=== PATIENT | female | born 1995 | race African-American/Black ===

== ENCOUNTER 2017-07-17 12:32 | Emergency (ER) | payer OTHER ==
[2017-07-17] MEDS ORDERED: Ibuprofen 200 MG TAB ONE (13:20)
--- NOTE | 2017-07-17 13:51 | RAD ---
LEFT MIDDLE FINGER 2 VIEWS: HISTORY: Finger injury. FINDINGS: Joint spaces are preserved. No acute fracture or dislocation. IMPRESSION: No acute osseous abnormalities are demonstrated. POS: [facility]
== END 2017-07-17 13:30 | disposition home or self-care (01) ==
LOC: NAV ERS 12:32
DX: S63.613A Unspecified sprain of left middle finger, initial encounter (principal); F41.9 Anxiety disorder, unspecified; F32.9 Major depressive disorder, single episode, unspecified; F17.210 Nicotine dependence, cigarettes, uncomplicated; Z79.899 Other long term (current) drug therapy; W21.05XA Struck by basketball, initial encounter; Y93.67 Activity, basketball
CPT/HCPCS: Q4049

== ENCOUNTER 2017-08-18 16:16 | Emergency (ER) | payer OTHER ==
[2017-08-18] MEDS ORDERED: Nitrazine Tape 1 ROLL ONE (16:30)
[2017-08-18] MEDS ORDERED: Sodium Chloride 0.9% 2,000 ML ONE (17:06)
== END 2017-08-18 17:19 | disposition home or self-care (01) ==
LOC: NAV ERS 16:16
DX: T54.91XA Toxic effect of unspecified corrosive substance, accidental (unintentional), initial encounter (principal); D50.0 Iron deficiency anemia secondary to blood loss (chronic); F41.9 Anxiety disorder, unspecified; F32.9 Major depressive disorder, single episode, unspecified; F17.200 Nicotine dependence, unspecified, uncomplicated
CPT/HCPCS: 99283; J7050

== ENCOUNTER 2017-11-30 07:31 | Emergency (ER) | payer OTHER, SELFPAY ==
[2017-11-30 12:57] LABS: HIV (1/2) Antibody/Antigen Non-Reactive (NonReactive); HIV 1/2 INDEX 0.18 S/CO (<1.00)
[2017-11-30 22:36] LABS: Chlamydia by PCR Not Detected (NotDetected); GC by PCR Not Detected (NotDetected)
== END 2017-11-30 08:40 | disposition home or self-care (01) ==
LOC: NAV ERS 07:31
DX: Z20.2 Contact with and (suspected) exposure to infections with a predominantly sexual mode of transmission (principal); E28.2 Polycystic ovarian syndrome; D50.9 Iron deficiency anemia, unspecified; F17.210 Nicotine dependence, cigarettes, uncomplicated; F32.9 Major depressive disorder, single episode, unspecified; F41.9 Anxiety disorder, unspecified; Z79.899 Other long term (current) drug therapy
CPT/HCPCS: 87389; 87491; 87591; 99283

== ENCOUNTER 2017-12-22 11:09 | Emergency (ER) | payer OTHER ==
[2017-12-22 12:06] LABS: PTT 35.9 SEC (22.9-36.1); Prothrombin Time 13.7 SEC (12.0-14.7)
[2017-12-22 12:13] LABS: Anion Gap 13 mmol/L (10-20); BUN (Urea Nitrogen) 11 mg/dL (7.0-18.7); CK (CPK) 148 U/L (29-168); Calc. Creatinine Clearance 0 mL/min (70-130); Calcium 9.9 mg/dL (7.8-10.44); Carbon Dioxide 24 mmol/L (22-29); Chloride 108 mmol/L (98-107); Estimated GFR-MDRD Greater than 90; Glucose 92 mg/dL (70-105); Potassium 4.2 mmol/L (3.5-5.1); Sodium 141 mmol/L (136-145)
[2017-12-22 12:14] LABS: BHCG - Serum Negative (NEGATIVE); Pregs Control Bar Appear? YES (CONTROL BAR)
[2017-12-22 12:20] LABS: #Basophils 0.1 thou/uL (0.0-0.2); #Eosinphils 0.1 thou/uL (0.0-0.7); #Lymphocytes 2.5 thou/uL (1.20-3.40); #Monocytes 0.3 thou/uL (0.11-0.59); #Neutrophils 1.9 thou/uL (1.40-6.50); %Basophils 1.6 % (0.0-1.0); %Eosinophils 1.6 % (0.0-10.0); %Lymphocytes 51.3 % (21.0-51.0); %Monocytes 6.9 % (0.0-10.0); %Neutrophils 38.7 % (42.0-75.0); Hemoglobin 11.8 g/dL (12.0-16.0); MDiff Complete? YES; Mean Corpuscular HGB CONC 29.1 g/dL (32.0-36.0); Mean Corpuscular Hemoglobin 22.4 pg (27.0-31.0); Mean Corpuscular Volume 76.8 fL (78.0-98.0); Mean Platelet Volume 7.6 fL (7.4-10.4); Platelet Count 266 thou/uL (130-400); Red Blood Cell (RBC) Count 5.27 mill/uL (4.20-5.40); White Blood Cell (WBC) Count 4.9 thou/uL (4.8-10.8)
[2017-12-22 12:21] LABS: Anisocytosis SLIGHT = 6-15 cells (100X) (0-5/hpf); Microcytosis SLIGHT = 6-15 cells (100X) (0-5/hpf)
[2017-12-22] MEDS ORDERED: Ketorolac Tromethamine 30 MG/ML VIAL ONE (12:21)
[2017-12-22 12:34] LABS: D-Dimer Test Less than 0.27 *mcg/mL (0.27-0.43)
--- NOTE | 2017-12-22 13:55 | RAD ---
RIGHT HIP TWO VIEWS: 12/22/2017 HISTORY: Right hip pain with pain radiating down into the right knee. FINDINGS: There is no evidence of a fracture, dislocation, or other osseous abnormality involving the right hip . IMPRESSION: No acute osseous abnormality. POS: [facility]
--- NOTE | 2017-12-22 13:57 | RAD ---
RIGHT KNEE FOUR VIEWS: HISTORY: Pain. COMPARISON: None. FINDINGS: No significant joint effusion. No acute fracture or malalignment. Very small medial and lateral com partment osteophytes. IMPRESSION: No acute abnormality. POS: [facility]
== END 2017-12-22 13:42 | disposition home or self-care (01) ==
LOC: NAV ERS 11:09
DX: S86.111A Strain of other muscle(s) and tendon(s) of posterior muscle group at lower leg level, right leg, initial encounter (principal); M25.551 Pain in right hip; D50.9 Iron deficiency anemia, unspecified; Z87.891 Personal history of nicotine dependence; F32.9 Major depressive disorder, single episode, unspecified; X50.9XXA Other and unspecified overexertion or strenuous movements or postures, initial encounter
CPT/HCPCS: 80048; 82550; 84703; 85025; 85379; 85610; 85730; 96374; J1885

== ENCOUNTER 2018-01-30 08:27 | Emergency (ER) | payer OTHER, SELFPAY ==
[2018-01-30] MEDS ORDERED: Iopamidol 370 76% 100 ML VIAL ONE (09:00)
[2018-01-30] MEDS ORDERED: Sodium Chloride 0.9% 1,000 ML ONE (09:35)
[2018-01-30] MEDS ORDERED: Ondansetron HCl/PF 4 MG/2 ML Vial ONE (09:36)
[2018-01-30] MEDS ORDERED: Ketorolac Tromethamine 30 MG/ML VIAL ONE (09:36)
[2018-01-30 10:21] LABS: #Lymphocytes 1.2 thou/uL (1.20-3.40); #Monocytes 0.4 thou/uL (0.11-0.59); #Neutrophils 9.2 thou/uL (1.40-6.50); %Basophils 0.4 % (0.0-1.0); %Eosinophils 0.1 % (0.0-10.0); %Lymphocytes 10.7 % (21.0-51.0); %Monocytes 4.1 % (0.0-10.0); %Neutrophils 84.7 % (42.0-75.0); Differential Comment SCANNED; Hemoglobin 12.2 g/dL (12.0-16.0); Mean Corpuscular HGB CONC 30.4 g/dL (32.0-36.0); Mean Corpuscular Hemoglobin 23.2 pg (27.0-31.0); Mean Corpuscular Volume 76.2 fL (78.0-98.0); Mean Platelet Volume 7.9 fL (7.4-10.4); Platelet Count 253 thou/uL (130-400); RBC Distribution Width 14.9 % (11.5-14.5); Red Blood Cell (RBC) Count 5.28 mill/uL (4.20-5.40); White Blood Cell (WBC) Count 10.8 thou/uL (4.8-10.8)
[2018-01-30 10:22] LABS: BHCG - Serum Negative (NEGATIVE); Pregs Control Bar Appear? YES (CONTROL BAR)
[2018-01-30 10:23] LABS: ALT (SGPT) 26 U/L (8-55); AST (SGOT) 23 U/L (5-34); Albumin 4.1 g/dL (3.5-5.0); Alkaline Phosphatase 69 U/L (40-150); Anion Gap 13 mmol/L (10-20); BUN (Urea Nitrogen) 6 mg/dL (7.0-18.7); Bilirubin, Total 0.5 mg/dL (0.2-1.2); Calc. Creatinine Clearance 0 mL/min (70-130); Calcium 9.2 mg/dL (7.8-10.44); Carbon Dioxide 22 mmol/L (22-29); Chloride 108 mmol/L (98-107); Estimated GFR-MDRD Greater than 90; Globulin 2.4 g/dL (2.4-3.5); Glucose 105 mg/dL (70-105); Potassium 3.5 mmol/L (3.5-5.1); Protein, Total 6.5 g/dL (6.0-8.3); Sodium 139 mmol/L (136-145)
[2018-01-30 10:59] LABS: Bilirubin Negative (Negative); Blood, Urine Negative (Negative); Glucose, Urine (Dipstick) Negative (Negative); Leukocyte Negative (Negative); Nitrite Negative (Negative); Protein, Urine (Dipstick) 30 mg/dL (Neg-Trace); Urobilinogen 0.2 mg/dL (0.2-1.0)
[2018-01-30 11:11] LABS: Clarity SL HAZY (Clear); Specific Gravity, Urine 1.028 (1.002-1.036)
[2018-01-30 11:12] LABS: Bacteria/HPF 2+ HPF (None Seen); RBC/HPF 0-3 HPF (0-3); WBC/HPF 0-3 HPF (0-3)
--- NOTE | 2018-01-30 11:59 | CT ---
CT ABDOMEN AND PELVIS PERFORMED WITH IV CONTRAST ENHANCEMENT: Date: 01/30/18 HISTORY: Fever, lower abdominal pain. COMPARISON: 08/07/16 study. FINDINGS: The lung bases are clear. The liver and spleen are within normal limits of size. Pancreas and gallbladder regions are normal. Right and left adrenal glands, and right and left kidneys are normal in size and appearance. There is no significant periaortic or mesenteric adenopathy. The colon is decompressed and is therefore diffi cult to assess, although there is some questionable mild bowel wall thickening. There is no pneumatos is. There is no pericolonic inflammatory process. CT of pelvis was performed with contrast enhancement. The cecum is very low lying. The appendix is no rmal in appearance. No free fluid is noted. There are follicles involving the adnexa. Endometrium is slightly thickened, which may be related to stage of menstrual cycle. IMPRESSION: 1. The colon is decompressed and somewhat difficult to assess. Questionable mild colonic wall thicke victor m versus underdistention. Clinical correlation as to any colitis type symptoms or diarrhea. 2. Normal appendix. POS: [facility]
== END 2018-01-30 13:10 | disposition home or self-care (01) ==
LOC: NAV ERS 08:27
DX: R10.30 Lower abdominal pain, unspecified (principal); D50.0 Iron deficiency anemia secondary to blood loss (chronic); F41.9 Anxiety disorder, unspecified; F32.9 Major depressive disorder, single episode, unspecified; Z87.891 Personal history of nicotine dependence; Z79.899 Other long term (current) drug therapy
CPT/HCPCS: 74177; 80053; 81003; 81015; 83605; 84703; 85025; 96361; 96374; 96375; J1885; J2405; J7050

== ENCOUNTER 2018-03-26 16:24 | Emergency (ER) | payer SELFPAY ==
[2018-03-26] MEDS ORDERED: Ondansetron ODT 4 MG TAB ONE (16:53)
[2018-03-26] MEDS ORDERED: Ketorolac Tromethamine 30 MG/ML VIAL ONE (16:53)
[2018-03-26 16:56] LABS: Bilirubin Negative (Negative); Blood, Urine Negative (Negative); Clarity Clear (Clear); Glucose, Urine (Dipstick) Negative (Negative); Leukocyte Negative (Negative); Nitrite Negative (Negative); Protein, Urine (Dipstick) Negative (Neg-Trace); Specific Gravity, Urine 1.015 (1.005-1.030); Urobilinogen 0.2 mg/dL (0.2-1.0)
--- NOTE | 2018-03-26 18:05 | RAD ---
CHEST 1 VIEW: Date: 03/26/18 HISTORY: Cough. COMPARISON: None. FINDINGS: Lungs are clear. No pneumothorax or effusion. Cardiac silhouette and mediastinal contours within norm al limits. IMPRESSION: No acute intrathoracic abnormality. POS: [facility]
[2018-03-26 18:39] LABS: Wet Prep Clue Cells Clue Cells Absent (None Seen); Wet Prep Trichomonas Trichomonas Absent (None Seen)
[2018-03-28 12:21] LABS: Chlamydia by PCR Not Detected (NotDetected); GC by PCR Not Detected (NotDetected)
== END 2018-03-26 18:36 | disposition home or self-care (01) ==
LOC: NAV ERS 16:24
DX: O98.511 Other viral diseases complicating pregnancy, first trimester (principal); B34.9 Viral infection, unspecified; O99.341 Other mental disorders complicating pregnancy, first trimester; F41.9 Anxiety disorder, unspecified; F32.9 Major depressive disorder, single episode, unspecified; Z87.891 Personal history of nicotine dependence; Z79.899 Other long term (current) drug therapy
CPT/HCPCS: 71045; 81003; 87086; 87210; 87480; 87491; 87510; 87591; 87660; 87804; 96372; J1885; Q0162

== ENCOUNTER 2018-05-14 17:24 | Emergency (ER) | payer SELFPAY ==
[2018-05-14 18:07] LABS: BHCG - Serum POSITIVE (NEGATIVE); Pregs Control Bar Appear? YES (CONTROL BAR)
[2018-05-14 18:13] LABS: ALT (SGPT) 14 U/L (8-55); AST (SGOT) 16 U/L (5-34); Albumin 4.3 g/dL (3.5-5.0); Alkaline Phosphatase 66 U/L (40-150); Anion Gap 13 mmol/L (10-20); BUN (Urea Nitrogen) 8 mg/dL (7.0-18.7); Bilirubin, Total 0.1 mg/dL (0.2-1.2); CK (CPK) 156 U/L (29-168); Calc. Creatinine Clearance 0 mL/min (70-130); Calcium 9.3 mg/dL (7.8-10.44); Carbon Dioxide 22 mmol/L (22-29); Chloride 107 mmol/L (98-107); Estimated GFR-MDRD Greater than 90; Globulin 3.1 g/dL (2.4-3.5); Glucose 81 mg/dL (70-105); Lipase 32 U/L (8-78); Potassium 3.7 mmol/L (3.5-5.1); Protein, Total 7.4 g/dL (6.0-8.3); Sodium 138 mmol/L (136-145)
[2018-05-14] MEDS ORDERED: Acetaminophen 500 MG TAB ONE (18:34)
[2018-05-14] MEDS ORDERED: Mag-Al Plus 1200 MG/1200 MG/120 MG/30 ML UDCUP ONE (18:34)
[2018-05-14] MEDS ORDERED: Ondansetron ODT 4 MG TAB ONE (18:37)
[2018-05-14 18:38] LABS: #Basophils 0.1 thou/uL (0.0-0.2); #Eosinphils 0.1 thou/uL (0.0-0.7); #Lymphocytes 3.2 thou/uL (1.20-3.40); #Monocytes 0.5 thou/uL (0.11-0.59); #Neutrophils 3.7 thou/uL (1.40-6.50); %Basophils 1.4 % (0.0-1.0); %Eosinophils 1.4 % (0.0-10.0); %Lymphocytes 41.5 % (21.0-51.0); %Monocytes 6.6 % (0.0-10.0); %Neutrophils 49.1 % (42.0-75.0); Hemoglobin 12.8 g/dL (12.0-16.0); Mean Corpuscular HGB CONC 31.2 g/dL (32.0-36.0); Mean Corpuscular Hemoglobin 24.7 pg (27.0-31.0); Mean Corpuscular Volume 79.2 fL (78.0-98.0); Mean Platelet Volume 6.8 fL (7.4-10.4); PLT Morphology Comment Appears Adequate; Platelet Count 314 thou/uL (130-400); RBC Distribution Width 14.9 % (11.5-14.5); RBC Morphology Normal; White Blood Cell (WBC) Count 7.6 thou/uL (4.8-10.8)
--- NOTE | 2018-05-14 18:53 | RAD ---
PORTABLE CHEST: 05/14/18 HISTORY: Chest pain. Lung isidro are clear. Heart and mediastinum appear normal. IMPRESSION: Unremarkable chest. POS: [facility]
[2018-05-14 18:58] LABS: Bilirubin Negative (Negative); Blood, Urine Negative (Negative); Clarity Clear (Clear); Glucose, Urine (Dipstick) Negative (Negative); Leukocyte Negative (Negative); Nitrite Negative (Negative); Protein, Urine (Dipstick) Negative (Neg-Trace); Specific Gravity, Urine 1.025 (1.005-1.030); Urobilinogen 0.2 mg/dL (0.2-1.0); pH, Urine 7.5 (5.0-9.0)
[2018-05-14 19:20] LABS: Amphetamine Not Detected (NotDetected); Barbiturates Screen Not Detected (NotDetected); Benzodiazepine Screen Not Detected (NotDetected); Cocaine Metabolite Screen Not Detected (NotDetected); Medtox Control Line Valid? VALID (VALID); Methadone Not Detected (NotDetected); Methamphetamine Not Detected (NotDetected); Opiate Screen Not Detected (NotDetected); Oxycodone Screen Not Detected (NotDetected); Phencyclidine (PCP) Not Detected (NotDetected); THC/Cannabinoid Screen Detected (NotDetected); Tricyclic Screen Not Detected (NotDetected)
== END 2018-05-14 19:45 | disposition home or self-care (01) ==
LOC: NAV ERS 17:24
DX: O21.9 Vomiting of pregnancy, unspecified (principal); O99.89 Other specified diseases and conditions complicating pregnancy, childbirth and the puerperium; R00.2 Palpitations; R07.81 Pleurodynia; O99.011 Anemia complicating pregnancy, first trimester; D50.9 Iron deficiency anemia, unspecified; O99.341 Other mental disorders complicating pregnancy, first trimester; F41.9 Anxiety disorder, unspecified; F32.9 Major depressive disorder, single episode, unspecified; Z87.891 Personal history of nicotine dependence; Z79.899 Other long term (current) drug therapy
CPT/HCPCS: 71045; 80053; 80306; 81003; 82550; 83690; 84443; 84484; 84703; 85025; 93005; Q0162

== ENCOUNTER 2018-06-03 12:05 | Emergency (ER) | payer MEDICAID, SELFPAY ==
[2018-06-03 13:08] LABS: #Basophils 0.1 thou/uL (0.0-0.2); #Eosinphils 0.1 thou/uL (0.0-0.7); #Lymphocytes 2.4 thou/uL (1.20-3.40); #Monocytes 0.3 thou/uL (0.11-0.59); #Neutrophils 2.3 thou/uL (1.40-6.50); %Basophils 1.7 % (0.0-1.0); %Eosinophils 1.3 % (0.0-10.0); %Lymphocytes 47.3 % (21.0-51.0); %Monocytes 5.7 % (0.0-10.0); Hemoglobin 12.1 g/dL (12.0-16.0); Mean Corpuscular HGB CONC 30.8 g/dL (32.0-36.0); Mean Corpuscular Hemoglobin 24.3 pg (27.0-31.0); Mean Corpuscular Volume 78.9 fL (78.0-98.0); Mean Platelet Volume 6.9 fL (7.4-10.4); Platelet Count 258 thou/uL (130-400); RBC Distribution Width 15.1 % (11.5-14.5); Red Blood Cell (RBC) Count 4.96 mill/uL (4.20-5.40); White Blood Cell (WBC) Count 5.2 thou/uL (4.8-10.8)
[2018-06-03 13:09] LABS: Anisocytosis SLIGHT = 6-15 cells (100X) (0-5/hpf); MDiff Complete? YES; PLT Morphology Comment Appears Adequate
--- NOTE | 2018-06-03 14:33 | ULT ---
TRANSVAGINAL PELVIC ULTRASOUND WITH REAGAN SCALE AND COLOR FLOW AND SPECTRAL DOPPLER IMAGING: Date: 06/03/18 HISTORY: Vaginal bleeding. FINDINGS: The uterus measures 7.6 x 5.0 x 6.5 cm with a single intrauterine gestational sac which has an irregu lar shape and no heart tones. The crown-rump length measures 0.25 cm, corresponding to an estim ated gestational age of 5 weeks/6 days. Flow is demonstrated to both ovaries. Follicles are seen in the ovaries on either side. No free fluid is seen in the cul-de-sac. IMPRESSION: Single irregular intrauterine gestational sac with measurements corresponding to an estimated gestati onal age of 5 weeks/6 days and no heart tones. The possibility of first trimester demise cannot be excluded. Correlation with serial serum beta HCG levels and follow-up ultrasound is recommended. Dr. Rico was notified of the results by the milking machine mechanic at 1215 hours. CODE CR. POS: OFF
== END 2018-06-03 14:18 | disposition home or self-care (01) ==
LOC: NAV ERS 12:05
DX: O20.9 Hemorrhage in early pregnancy, unspecified (principal); O99.011 Anemia complicating pregnancy, first trimester; Z87.891 Personal history of nicotine dependence
CPT/HCPCS: 36415; 76856; 84702; 85025; 86900; 86901; J7620